=== PATIENT | male | born 2000 | race Caucasian/White ===

== ENCOUNTER 2020-06-13 16:11 | Emergency (ER) | payer OTHER ==
[~2020-06-13] VITALS: Ht 182.9 cm; Wt 95.4 kg
--- NOTE | 2020-06-13 16:56 | PHYS DOC ---
Past History Past Medical History: No Pertinent History (JEB ARAIZA DO) Past Medical History: Migraines (CHRISTIANO DENT MD) Adult General Chief Complaint Chief Complaint: SYNCOPE HPI HPI Patient is a healthy fully vaccinated 20-year-old male who presents for syncope. This patient states he is healthy with no known medical diagnoses, is not on an y current medications. He works at local [employer]. States he had GI distress, nausea, several episodes of nonbloody nonbilious emesis and diarrhea that started yesterday without any recent travel, concerning ingestion and/or sick contact. Patient reports after every episode of vomit he felt lightheaded and suffered " a few" episodes of syncope which she does not remember. States he suffered approximately 3 episodes of emesis yesterday and approximately 4 episodes of emesis today. Before arrival to our facility, patient reports being in the shower and shaving. He was turning his head over his left shoulder when he again got nauseous and vomited while in the shower. He subsequently had syncopal episode. These episodes have all been unwitnessed, patient does not remember entirety of events. Patient ultimately was concerned and came to our facility via POV for evaluation. He complains of headache at this time in addition to mild nausea. He has been ambulatory since recent syncopal episode without any reported motor, sensory or focal neurologic deficits. He denies any known COVID-19 contact but given his GI symptoms, he is eager for COVID-19 testing (JEB ARAIZA DO) Review of Systems Review of Systems Fourteen body systems of review of systems have been reviewed. See HPI for pertinent positives and negative responses, other peterson all other systems are negative, non-pertinent or non-contributory (JEB ARAIZA DO) Allergies Allergies Allergies Coded Allergies Type Severity Reaction Last Updated Verified No Known Drug Allergies 06/13/20 No (JEB ARAIZA DO) Physical Exam Physical Exam Constitutional: Pt is oriented to person, place, and time. Pt appears well- developed and well-nourished. HENT: Head: Normocephalic and atraumatic. Mouth/Throat: Oropharynx is clear and moist. No hematomas or abrasions to face or scalp. Patient does have laceration to right neck approximately 1.5 cm in length and vertical orientation consistent with shaving razor that is superficial in nature with minimal dermis involvement OP clear, no blood, no malocclusion, dentition intact Nares clear, no nasal septal hematoma External ears unremarkable, no walter sign Midface stable Eyes: Conjunctivae and EOM are normal. Pupils are equal, round, and reactive to light. Neck: C-spine midline nontender, no step-offs, no carotid bruits present bilaterally Cardiovascular: Normal rate, regular rhythm and normal heart sounds. Pulmonary/Chest: Effort normal and breath sounds normal. No respiratory distress. No wheezes. CTA bilaterally Abdominal: Soft. Bowel sounds are normal. Pt exhibits no distension. There is no tenderness. Musculoskeletal: No bony tenderness to extremities, no deformities, full ROM extremities Chest wall stable Pelvis stable and non-tender No vertebral TTP and spine without stepoffs Neurological: Pt is alert and oriented to person, place, and time. Moving all extremities willfully, able to wiggle all fingers and toes Alert and oriented x 3 Gait unremarkable Hints exam unremarkable Cranial nerves II through XII intact Sensation grossly intact Skin: Skin is warm and dry. No abrasions, no lacerations Psychiatric: Behavior is appropriate for situation Nursing note and vitals reviewed. (JEB ARAIZA DO) EKG EKG EKG ordered and interpreted by myself at 1630 hrs. as sinus rhythm at 92 bpm, unremarkable intervals, no axis deviation, no acute ischemic findings, no STEMI (JEB ARAIZA DO) EKG Repeat EKG at 2134 hrs. shows sinus rhythm at 99 bpm. No findings of acute STEMI or contralateral changes. There is some wavering baseline based on patient's movement. (CHRISTIANO DENT MD) Radiology/Procedures Radiology/Procedures [] (JEB ARAIZA DO) Radiology/[place] [address] IMAGING REPORT Signed PATIENT: GIRISH FONSECA DACCOUNT: [id number] : 2000 LOCATION: ER AGE: 20 SEX: M EXAM STATUS: REG ER ORD. PHYSICIAN: JEB ARAIZA DO REASON: syncope PROCEDURE: CT HEAD WO CONTRAST Exam: CT head INDICATION: Syncope TECHNIQUE: Sequential axial images through the head were obtained without the administration of IV contrast. Comparisons: None FINDINGS: No focal parenchymal lesion or hemorrhage is identified. There is no midline shift or sulcal effacement. No acute vascular territory infarction is identified. Kauffman-white distinction is preserved. The ventricular system is within normal limits without compression hydrocephalus. The basal cisterns are well maintained. The visualized portions of the paranasal sinuses and mastoid air cells are well-pneumatized. No acute fractures. IMPRESSION: No acute intracranial abnormality. Exposure: One or more of the following in the visualized dose reduction techniques were utilized for this examination: 1. Automated exposure control 2. Adjustment of the MA and/or KV according to patient size Use of iterative of reconstructive technique Electronically signed by: Demetris Cyr MD (06/13/2020 5:26 PM) [facility] DICTATED AND SIGNED BY: DEMETRIS CYR MD DATE: 06/13/201725 CC: JEB ARAIZA DO; PCP,UNKNOWN ~MTH[address] [place] [address] IMAGING REPORT Signed PATIENT: GIRISH FONSECA DACCOUNT: [id number] : 2000 LOCATION: ER AGE: 20 SEX: M EXAM STATUS: REG ER ORD. PHYSICIAN: JEB ARAIZA DO REASON: syncope PROCEDURE: CHEST AP ONLY EXAM: CHEST AP ONLY 06/13/2020 4:49 PM CLINICAL INDICATION: Syncope COMPARISON: None TECHNIQUE: PA view of the chest. FINDINGS: The heart and mediastinum are normal. Lungs are well-expanded and clear. No consolidation, pleural effusion, or pneumothorax. Pulmonary vascularity is normal. The thoracic skeleton is intact. IMPRESSION: Normal chest radiograph. Electronically signed by: Betzy Barrett MD (06/13/2020 5:30 PM) [id number] DICTATED AND SIGNED BY: BETZY BARRETT MD DATE: 06/13/201729 CC: JEB ARAIZA DO; PCP,UNKNOWN ~MTH0 0 (CHRISTIANO DENT MD) Heart Score HEART Score for Chest Pain: HEART Score for Chest Pain Response (Comments) Value History Slighlty/Non-Suspicious 0 ECG Normal 0 Age < 45 0 Risk Factors No Risk Factors 0 Troponin < Normal Limit 0 Total 0 Risk Factors: Risk Factors: DM, Current or recent (<one month) smoker, HTN, HLP, family history of CAD, obesity. Risk Scores: Risk Factors: DM, Current or recent (<one month) smoker, HTN, HLP, family history of CAD, obesity. (JEB ARAIZA DO) HEART Score for Chest Pain: HEART Score for Chest Pain Response (Comments) Value History Slighlty/Non-Suspicious 0 ECG Normal 0 Age < 45 0 Risk Factors 1 or 2 Risk Factors 1 Troponin < Normal Limit 0 Total 1 Course & Med Decision Making Course & Med Decision Making Initial history, physical examination, and limited diagnostic work-up obtained prior to my shift's end. Signout was given to Dr. Dent, oncoming attending physician. Please defer to his documentation regarding findings and management as indicated for patient's current ER visit (JEB ARAIZA DO) Course & Med Decision Making See [facility] chart for details. Still awaiting electrolytes. 2100 re-ordered. Pt. declines meds for nausea or pain. Patient declined spinal tap. Patient requesting discharge. Patient to self isolate for the next 10 days. Patient to take Tylenol and ibuprofen for discomfort. Marked pain may take Vicoprofen. Wearing a mask anytime he is away from his home. Must cover nose and mouth. Follow-up with [facility]. Return if any concerns. May use Zofran 8 mg with 4 times a day for nausea and vomiting. Impression: 1. Syncope 2. Mild Leukocytosis 11.9 3. Viral syndrome 4. Dehydration (CHRISTIANO DENT MD) Dragon Disclaimer Dragon Disclaimer This electronic medical record was generated, in whole or in part, using a voice recognition dictation system. (JEB ARAIZA DO) PERC Rule for PE PERC Rule for PE Response (Comments) Value Age > 50: No 0 HR > 100: No 0 Sa02 on room air <95%: No 0 Unilateral leg swelling: No 0 Hemoptysis: No 0 Recent surgery or trauma: No 0 Prior PE or DVT: No 0 Hormone use: No 0 Total 0 Departure Departure: Impression: Primary Impression: Syncope Additional Impressions: Viral syndrome Person under investigation for COVID-19 Disposition: 01 DC HOME SELF CARE/HOMELESS Condition: STABLE Referrals: PCP,UNKNOWN (PCP) Scripts Acetaminophen (ACETAMINOPHEN) 500 Mg Tablet 1000 MG PO QIDPRN PRN for pain and fever, #120 TAB Prov: CHRISTIANO DENT MD 06/13/20 Ondansetron Hcl (ZOFRAN) 4 Mg Tablet 8 MG PO QIDPRN PRN for NAUSEA/VOMITING, #30 TAB Prov: CHRISTIANO DENT MD 06/13/20 Hydrocodone/Ibuprofen (HYDROCODONE-IBUPROFEN 7.5-200 ) 1 Each Tablet 1 TAB PO PRN Q6HRS PRN for PAIN, #30 TAB 0 Refills Prov: CHRISTIANO DENT MD 06/13/20 Problem Qualifiers JEB ARAIZA DO Jun 13, 2020 16:56 CHRISTIANO DENT MD Jun 13, 2020 21:03
[2020-06-13 17:27] LABS: BASO % 0 % (0-3); EOS % 0 % (0-3); HEMATOCRIT 49.2 % (39.0-53.0); HEMOGLOBIN 16.6 g/dL (13.0-17.5); LYMPH # 0.3 x10^3/uL (1.0-4.8); LYMPH % 3 % (24-48); MEAN CORPUSCULAR HEMOGLOBIN 32 pg (25-35); MEAN CORPUSCULAR HGB CONC 34 g/dL (31-37); MEAN CORPUSCULAR VOLUME 94 fL (79-100); MONO # 0.5 x10^3/uL (0.0-1.1); MONO % 4 % (0-9); NEUT % 93 % (31-73); PLATELET COUNT 219 x10^3/uL (140-400); RED BLOOD COUNT 5.25 x10^6/uL (4.30-5.70); RED CELL DISTRIBUTION WIDTH 12.8 % (11.5-14.5); WHITE BLOOD COUNT 11.9 x10^3/uL (4.0-11.0)
--- NOTE | 2020-06-13 17:29 | RAD ---
Exam: CT head INDICATION: Syncope TECHNIQUE: Sequential axial images through the head were obtained without the administration of IV contrast. Comparisons: None FINDINGS: No focal parenchymal lesion or hemorrhage is identified. There is no midline shift or sulcal effacement. No acute vascular territory infarction is identified. Kauffman-white distinction is preserved. The ventricular system is within normal limits without compression hydrocephalus. The basal cisterns are well maintained. The visualized portions of the paranasal sinuses and mastoid air cells are well-pneumatized. No acute fractures. IMPRESSION: No acute intracranial abnormality. Exposure: One or more of the following in the visualized dose reduction techniques were utilized for this examination: 1. Automated exposure control 2. Adjustment of the MA and/or KV according to patient size Use of iterative of reconstructive technique Electronically signed by: Demetris Roca MD (06/13/2020 5:26 PM) [facility]
--- NOTE | 2020-06-13 17:33 | RAD ---
EXAM: CHEST AP ONLY 06/13/2020 4:49 PM CLINICAL INDICATION: Syncope COMPARISON: None TECHNIQUE: PA view of the chest. FINDINGS: The heart and mediastinum are normal. Lungs are well-expanded and clear. No consolidation, pleural effusion, or pneumothorax. Pulmonary vascularity is normal. The thoracic skeleton is intact. IMPRESSION: Normal chest radiograph. Electronically signed by: Betzy Barrett MD (06/13/2020 5:30 PM) [id number]
[2020-06-13] MEDS ORDERED: IV NORMAL SALINE 1,000ML 1,000 ML IV ONE (18:00)
[2020-06-13 21:03] LABS: CREATININE 1.2 mg/dL (0.7-1.3); GFR 77.2; POTASSIUM 3.7 mmol/L (3.5-5.1)
[2020-06-13] MEDS ORDERED: MORPHINE SULFATE 10 MG/ML SYRINGE. SQ ONE (21:30)
[2020-06-13] MEDS ORDERED: ONDA4TAB7 PO (21:35)
[2020-06-13] MEDS ORDERED: HYDR-1179 PO (21:35)
[2020-06-13] MEDS ORDERED: ACET500T68 PO (21:35)
[2020-06-13 21:39] VITALS: BP 130/59
[2020-06-13 21:55] LABS: BACTERIA,URINE 0 /HPF (0-FEW); BILIRUBIN,URINE NEG (NEG); CLARITY,URINE CLEAR; COLOR,URINE AMBER; GLUCOSE,URINE NEG (NEG); NITRITE,URINE NEG (NEG); UROBILINOGEN,URINE 0.2 mg/dL (0.2 mg/dL); WBC,URINE OCC /HPF (0-4)
[2020-06-13] MEDS ORDERED: KETOROLAC 30 MG/ML VIAL. IVP ONE (22:00)
[2020-06-13] MEDS ORDERED: ONDANSETRON PF 4 MG/2 ML VIAL. IVP ONE (22:00)
--- NOTE | 2020-06-15 08:47 | EKG ---
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
--- NOTE | 2020-06-15 09:05 | EKG ---
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
== END 2020-06-13 21:55 | disposition home or self-care (01) ==
LOC: ER 16:11
DX: R55 Syncope and collapse (principal); B34.9 Viral infection, unspecified; G43.909 Migraine, unspecified, not intractable, without status migrainosus; D72.829 Elevated white blood cell count, unspecified; E86.0 Dehydration; Z20.828 Contact with and (suspected) exposure to other viral communicable diseases
CPT/HCPCS: 36415; 70450; 71045; 80048; 81001; 82947; 84484; 85025; 86140; 93005; 96360; 99285; C9803; J7030; U0003